=== PATIENT | male | born 1990 | race Caucasian/White ===

== ENCOUNTER 2018-07-25 20:00 | Emergency (ER) | payer OTHER ==
[~2018-07-25] VITALS: Ht 180.3 cm; Wt 86.2 kg
[2018-07-25 20:07] VITALS: BP_SYST 134
--- NOTE | 2018-07-25 20:14 | NUR ---
Patient to ER bed 07 to gown for evaluation. Side rails up. Report given to Chani FOLEY.
--- NOTE | 2018-07-25 20:18 | NUR ---
Pt came into ED c/o laceration to forehead approximately 2.5cm. Pt states he was skate boarding and doing tricks when he accidentally hit his head on a fire hydrant. Pt denies losing consciousness. Pt was seen by paramedics but was in [place] and did not want to wait. Pt took train to [place] and was picked up and dropped off by girlfriend to ED. Steri-strips were placed by paramedics. No other injuries/complaints per patient or noted.
--- NOTE | 2018-07-25 20:22 | NUR ---
ER Dr. Russell at bedside examining patient.
[2018-07-25] MEDS ORDERED: BACITRACIN 1 GM OINT TP ONE (20:30)
[2018-07-25] MEDS ORDERED: DIPH-TET-PERTUS Vaccine 0.5 ML VIAL (ADACEL) IM ONE (20:30)
[2018-07-25] MEDS ORDERED: LIDOCAINE/EPI 1% 1:100000 20 ML VIAL IJ ONE (20:30)
--- NOTE | 2018-07-25 20:37 | NUR ---
Patient has a 2.[address] forehead[address] Russell applied sutures using sterile technique. Edges well approximated. Site cleansed with betadine. Dressing of non-adherent applied to site. No bleeding noted. Pt tolerated well.
[2018-07-25 21:09] VITALS: BP_SYST 132
--- NOTE | 2018-07-25 21:09 | NUR ---
Patient given written and verbal discharge instructions and verbalizes understanding. ER MD discussed with patient the results and treatment provided. Patient in stable condition. Patient wanted to keep ID band for souvenir. No Rx given. Patient educated on pain management and to follow up with PMD. Pain Scale 0. Opportunity for questions provided and answered. Medication side effect fact sheet provided.
== END 2018-07-25 21:09 | disposition home or self-care (01) ==
LOC: SED 20:00
DX: S01.81XA Laceration without foreign body of other part of head, initial encounter (principal); W01.0XXA Fall on same level from slipping, tripping and stumbling without subsequent striking against object, initial encounter; Y93.89 Activity, other specified; Y92.89 Other specified places as the place of occurrence of the external cause; Y99.8 Other external cause status
CPT/HCPCS: 90715; 99283

== ENCOUNTER 2018-08-03 18:31 | Emergency (ER) | payer OTHER ==
[~2018-08-03] VITALS: Ht 180.3 cm; Wt 81.6 kg
[2018-08-03 18:46] VITALS: BP_SYST 122
--- NOTE | 2018-08-03 18:49 | NUR ---
Patient triaged and placed in waiting room. VSS and patient appears in no acute distress at this time. Accompanied by self, awaiting available bed, and MD notified of need for MSE.
--- NOTE | 2018-08-03 19:19 | NUR ---
Pt ambulatory to bed 7 for evaluation
--- NOTE | 2018-08-03 19:20 | NUR ---
Pt came to the ED for suture removal. Reports that pt had a small laceration on the L of his forehead. Denies n/v/d or fever. No other complaints/injuries noted. Will cont. to monitor.
--- NOTE | 2018-08-03 19:25 | NUR ---
ER at bedside examining patient.
--- NOTE | 2018-08-03 19:26 | NUR ---
ER MD Dr. Briggs removed 6 stitches.
--- NOTE | 2018-08-03 19:28 | NUR ---
Patient given written and verbal discharge instructions and verbalizes understanding. ER MD Dr. Briggs discussed with patient the results and treatment provided. Patient in stable condition. ID arm band removed. Rx of given. Patient educated on pain management and to follow up with PMD. Pain Scale 0/10. Opportunity for questions provided and answered. Medication side effect fact sheet provided.
[2018-08-03 19:39] VITALS: BP_SYST 122
== END 2018-08-03 19:39 | disposition home or self-care (01) ==
LOC: SED 18:31
DX: S01.81XD Laceration without foreign body of other part of head, subsequent encounter (principal); W01.0XXD Fall on same level from slipping, tripping and stumbling without subsequent striking against object, subsequent encounter
CPT/HCPCS: 99281